=== PATIENT | male | born 1980 | race Caucasian/White ===

== ENCOUNTER 2019-04-06 20:18 | Emergency (ER) | payer OTHER ==
[~2019-04-06] VITALS: Ht 188 cm; Wt 93.0 kg
--- NOTE | 2019-04-06 20:52 | NUR ---
ED Nurse Note: Patient presents with complaints of bilateral ear infections with worsening headache.
[2019-04-06 20:53] VITALS: BP 151/99
[2019-04-06] MEDS ORDERED: Cortisporin OTIC Susp 10ml RIGHT EAR ONE (21:00)
[2019-04-06] MEDS ORDERED: oxyCODONE HCL/Acetaminophen 5/325mg ORAL ONE (21:00)
[2019-04-06] MEDS ORDERED: Ciprofloxacin 500mg tab ORAL ONE (21:00)
--- NOTE | 2019-04-06 21:01 | Emergency Room Report ---
History of Present Illness General Chief Complaint: Earache Source: Patient Present Illness HPI Patient presents with right ear pain. It has been going for several days. He was started on azithromycin and Cortisporin solution. The pain is persisting. He is taken Tylenol and [id number] strength Motrin with some help. He rates the pain 8/10. He feels a headache along with that. There is jaw pain when he opens his mouth. He has a fever. There are no chills. There is no nausea, vomiting or diarrhea. The pain is been intermittent. He feels shooting pains from the ear up to the side of his head. Also has pain when he touches the ear. The pain is keeping him from sleeping. In addition he has ringing in his ears. This is worse on the right-hand side. He has sinus trouble but does not take any medication. He denies any sore throat. There is ingrown hair on the side of his neck on that side. This is minimally tender. Patient is involved in sports and has multiple joint injuries and has had surgeries in the past. He says he has an ACL tear on the right-hand knee and needs to see an channel specialist. There is no calf swelling or pain. Both of his ankles are also sore. He is able to ambulate. There is no numbness and no swelling in the knee at this time. No dysuria or hematuria. No shortness of breath or cough. No chest pain. No abdominal pain. His lack of sleep is making him anxious. Allergies: Coded Allergies: No Known Allergies (Unverified , 04/06/19) Patient History Social History: Denies: smoking Social History Narrative Recent move from the [facility]. Reviewed Nursing Documentation: PMH: Agreed; PSxH: Agreed Nursing Documentation-PM Past Medical History: No Stated History Review of Systems Genitourinary: Reports: no symptoms All Other Systems: negative except mentioned in HPI Physical Exam Vital Signs Date Time Temp Pulse Resp B/P (MAP) Pulse Ox O2 Delivery O2 Flow Rate FiO2 04/06/19 20:24 100.0 86 18 151/99 (116) 98 Room Air Sp02 EP Interpretation: reviewed, normal General Appearance: well appearing, no apparent distress, GCS 15 Head: normocephalic, other - Minimal tenderness right mastoid Eyes: bilateral eye normal inspection, bilateral eye PERRL ENT: normal pharynx, moist mucus membranes, other - Right ear canals swollen with discharge and erythema and pinna tenderness also some mastoid tenderness. There is tenderness when the patient opens his mouth in the TMJ. 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 Differential includes otitis media, otitis externa , mastoiditis amongst others. Due to the appearance of the ear canal antibiotics are indicated not only topically but also because of the fever orally. Also the patient will be given analgesics here. An ear wick is inserted and Cortisporin suspension is instilled. Patient's pain is somewhat improved after treatment. Discussed treatment plan with patient and . Patient stable for outpatient observation and treatment. Last Vital Signs Date Time Temp Pulse Resp B/P (MAP) Pulse Ox O2 Delivery O2 Flow Rate FiO2 04/06/19 21:39 100.0 79 18 151/99 98 Room Air Status: improved Disposition: HOME, SELF-CARE Condition: Improved Scripts Ibuprofen* (MOTRIN*) 600 Mg Tablet 600 MG ORAL Q6H PRN for For Pain, #20 TAB 0 Refills Prov: Adam Stapleton MD 04/06/19 Tramadol Hcl* (ULTRAM*) 50 Mg Tablet 50 MG ORAL Q6H PRN for For Pain, #10 TAB 0 Refills Prov: Adam Stapleton MD 04/06/19 Ciprofloxacin (CIPRO) 500 Mg/5 Ml [facility].mc.rec 500 MG PO BID, #14 TAB Prov: Adam Stapleton MD 04/06/19 Referrals: NOT CHOSEN IPA/,REFERRING (PCP) Adam Stapleton MD Apr 06, 2019 21:01
[2019-04-06] MEDS ORDERED: TRAMADOL HCL50 MG ORAL (21:24)
[2019-04-06] MEDS ORDERED: IBUPROFEN600 MG ORAL (21:24)
[2019-04-06] MEDS ORDERED: CIPRO500 MG/51 PO (21:24)
[2019-04-06 21:39] VITALS: BP 151/99
--- NOTE | 2019-04-06 21:39 | NUR ---
ER DISCHARGE NOTE: Patient is cleared to be discharged per ERMD, pt is aox4, on room air, with stable vital signs. pt was given dc and prescription instructions, pt was able to verbalize understanding, pt id band removed without complications. pt is able to ambulate with steady gait. pt took all belongings.
== END 2019-04-06 21:40 | disposition home or self-care (01) ==
LOC: EMR 20:49
DX: H60.21 Malignant otitis externa, right ear (principal); R51 Headache
CPT/HCPCS: 99282

== ENCOUNTER 2020-06-10 11:14 | Emergency (ER) | payer BC, OTHER ==
[~2020-06-10] VITALS: Ht 188 cm; Wt 88.5 kg
[~2020-06-10 11:14] MED LIST: CIPRO500 MG/51 PO; IBUPROFEN600 MG ORAL; TRAMADOL HCL50 MG ORAL
[2020-06-10 11:28] VITALS: BP 129/75
[2020-06-10] MEDS ORDERED: Morphine Sulfate 4mg/ml Inj (IV USE ONLY) IVP ONE (11:45)
[2020-06-10] MEDS ORDERED: Omnipaque-300 100ml vial INJ PRN (11:45)
[2020-06-10] MEDS ORDERED: Ketorolac 30mg Inj IV ONE (11:45)
[2020-06-10 11:51] LABS: APPEARANCE,URINE CLEAR; BILIRUBIN, URINE NEGATIVE (NEGATIVE); GLUCOSE, URINE (UA) NEGATIVE (NEGATIVE); KETONES,URINE 3+ (NEGATIVE); LEUKOCYTE ESTERASE ,URINE NEGATIVE (NEGATIVE); NITRITE,URINE NEGATIVE (NEGATIVE); PH,URINE 6 (4.5-8.0); PROTEIN,URINE 1+ (NEGATIVE); UROBILINOGEN,URINE NORMAL MG/DL (0.0-1.0)
[2020-06-10 11:57] LABS: BASOPHILS % (AUTO) 0.8 % (0.0-2.0); EOSINOPHILS % (AUTO) 0.3 % (0.0-3.0); HEMATOCRIT 41.7 % (42.0-52.0); HEMOGLOBIN 14.6 G/DL (14.2-18.0); LYMPHOCYTES % (AUTO) 12.3 % (20.0-45.0); MEAN CORPUSCULAR VOLUME 88 FL (80-99); MONOCYTES % (AUTO) 7.8 % (1.0-10.0); NEUTROPHILS % (AUTO) 78.9 % (45.0-75.0); PLATELET COUNT 233 K/UL (150-450); RED BLOOD COUNT 4.73 M/UL (4.70-6.10); RED CELL DISTRIBUTION WIDTH 11.5 % (11.6-14.8); WHITE BLOOD COUNT 10.9 K/UL (4.8-10.8)
[2020-06-10 12:00] LABS: COLOR,URINE YELLOW
[2020-06-10 12:10] LABS: ANION GAP 9 mmol/L (5-15); BLOOD UREA NITROGEN 10 mg/dL (7-18); CALCIUM 9.2 MG/DL (8.5-10.1); CARBON DIOXIDE 28 MMOL/L (21-32); CHLORIDE 101 MMOL/L (98-107); CREATININE 0.9 MG/DL (0.55-1.30); POTASSIUM 4.3 MMOL/L (3.5-5.1); SODIUM 138 MMOL/L (136-145)
[2020-06-10 12:20] LABS: ALANINE AMINOTRANSFERASE 17 U/L (12-78); ALBUMIN 4.4 G/DL (3.4-5.0); ALBUMIN/GLOBULIN RATIO 1.1 (1.0-2.7); ALKALINE PHOSPHATASE 60 U/L (46-116); ASPARTATE AMINO TRANSFERASE 17 U/L (15-37); BILIRUBIN,TOTAL 1.7 MG/DL (0.2-1.0)
[2020-06-10 12:23] LABS: BILIRUBIN,DIRECT 0.2 MG/DL (0.0-0.3)
--- NOTE | 2020-06-10 14:16 | Diagnostic Imaging Report ---
Clinical Indication: Abdominal pain, decreased appetite Technique: No oral contrast utilized, per emergency room physician request IV administration nonionic contrast. Venous phase spiral acquisition obtained through the abdomen and pelvis. Multiplanar reconstructions were generated. Total dose length product 392 mGycm. CTDIvol(s) 7 mGy. Dose reduction achieved using automated exposure control Comparison: none Findings: Lack of enteric contrast limits assessment of the GI tract. There is inflammation within the fat surrounding the distal descending colon, with fluid and/or phlegmon tracking cephalad along Gerota's fascia. The main area of inflammation appears to surround a poorly defined diverticula. No extraluminal gas is demonstrated. No well-defined fluid collection is demonstrated. The appendix is not well-visualized, but no findings to suggest acute appendicitis are evident. No small bowel distention. No free intraperitoneal gas. No loculated fluid collections. The distal esophagus, stomach, duodenum are unremarkable. In the dome of the liver, there is a 2.7 cm hypoattenuating lesion. This demonstrates suggestion of peripheral nodular enhancement. One or more subcentimeter low-attenuation lesions which are too small to characterize are seen in the right hepatic lobe At least 2 punctate calcifications are seen within the right renal collecting system. At least one punctate calcification is seen in the left renal collecting system. No associated hydronephrosis. Subcentimeter low-attenuation lesions are seen within both kidneys, too small to characterize. No retroperitoneal or mesenteric mass or adenopathy. No pelvic mass or adenopathy. The included lung bases are clear. The bones are unremarkable Impression: Inflammation in the fat surrounding the distal descending colon, with fluid and/or phlegmon tracking cephalad. As there appears to be a very poorly visualized diverticulum in this area, findings are most likely due to acute uncomplicated diverticulitis. 2.7 cm hypoattenuating lesion in the dome of the liver. There is suggestion of peripheral nodular enhancement, indicating lesion is likely but not definitively a benign hemangioma. Recommend follow-up CT or MRI with hemangioma protocol to confirm Nonobstructive bilateral intrarenal calculi The CT scanner at [facility] is accredited by the [employer] and the scans are performed using protocols designed to limit radiation exposure to as low as reasonably achievable to attain images of sufficient resolution adequate for diagnostic evaluation.
[2020-06-10] MEDS ORDERED: IBUPROFEN600 M1 ORAL (14:34)
[2020-06-10] MEDS ORDERED: CIPROFLOXACIN500 M2 ORAL (14:34)
[2020-06-10] MEDS ORDERED: METRONIDAZOLE500 MG ORAL (14:34)
[2020-06-10] MEDS ORDERED: metroNIDAZOLE 500mg tab ORAL ONE (14:45)
[2020-06-10] MEDS ORDERED: Ciprofloxacin 500mg tab ORAL ONE (14:45)
[2020-06-10 15:42] VITALS: BP 129/75
--- NOTE | 2020-06-12 17:25 | Emergency Room Report ---
History of Present Illness General Chief Complaint: Abdominal Pain Source: Patient Present Illness HPI 40-year-old male presents with abdominal pain. States he has had pain for the last 3 days. Localized to left lower quadrant, 5 out of 10, dull, nonradiating. Denies fevers or chills. States he has had some diarrhea. Denies nausea or vomiting. No other aggravating relieving factors. Denies any other associated symptoms Allergies: Coded Allergies: No Known Allergies (Unverified , 04/06/19) COVID-19 Screening Contact w/high risk pt: No Experienced COVID-19 symptoms?: No COVID-19 Testing performed CUSTOMER SERVICE COORDINATOR: No Patient History Past Medical History: none Past Surgical History: none Pertinent Family History: none Social History: Denies: smoking, alcohol use, drug use Immunizations: UTD Reviewed Nursing Documentation: PMH: Agreed; PSxH: Agreed Review of Systems All Other Systems: negative except mentioned in HPI Physical Exam Vital Signs Date Time Temp Pulse Resp B/P (MAP) Pulse Ox O2 Delivery O2 Flow Rate FiO2 06/10/20 11:17 98.6 75 16 129/75 (93) 97 Room Air Sp02 EP Interpretation: reviewed, normal General Appearance: no apparent distress, alert, GCS 15, non-toxic Head: normocephalic, atraumatic Eyes: bilateral eye normal inspection, bilateral eye PERRL ENT: hearing grossly normal, normal pharynx, no angioedema, normal voice Neck: full range of motion, supple/symm/no masses Respiratory: chest non-tender, lungs clear, normal breath sounds, speaking full sentences Cardiovascular #1: regular rate, rhythm, no edema Cardiovascular #2: 2+ carotid (R), 2+ carotid (L), 2+ radial (R), 2+ radial (L), 2+ dorsalis pedis (R), 2+ dorsalis pedis (L) Gastrointestinal: normal bowel sounds, soft, non-distended, no guarding, no rebound, tenderness - Left lower quadrant Rectal: deferred Genitourinary: normal inspection, no CVA tenderness Musculoskeletal: back normal, normal range of motion, gait/station normal, non- tender Neurologic: alert, motor strength/tone normal, oriented x3, sensory intact, responsive, speech normal Psychiatric: judgement/insight normal, memory normal, mood/affect normal, no suicidal/homicidal ideation Reflexes: 3+ bicep (R), 3+ bicep (L), 3+ tricep (R), 3+ tricep (L), 3+ knee (R), 3+ knee (L) Skin: no rash Lymphatic: no adenopathy Medical Decision Making Diagnostic Impression: Primary Impression: Diverticulitis ER Course Hospital Course 40-year-old M presents to ED with lower abdominal pain Differential diagnoses include: appendicitis, diverticulitis, SBO, gastroenteritis Clinical course Patient placed on stretcher. color television console monitor. After initial history and physical I ordered labs, IV fluids, UA, pain medication and CT scan Labs - minimal leukocytosis, Hb/Hct stable. electrolytes ok. CT abdomen and pelvis - diverticulitis no signs of abscess I discussed findings with patient. Afebrile, nontoxic-appearing. Will discharge on antibiotics. Safe for discharge close outpatient follow-up. States he has a PMD I feel this is a highly complex case requiring extensive working including EKG/Rhythm strip, Xray/CT/US, Blood/urine lab work, repeat exams while in ED, and administration of strong opiates/narcotics for pain control, admission to hospital or close patient follow up. Diagnosis - divertculitis stable and discharged to home with prescription for Cipro and Flagyl. Followup with PMD. Return to ED if symptoms recur or worsen Labs Test 06/10/20 11:37 White Blood Count 10.9 K/UL (4.8-10.8) Red Blood Count 4.73 M/UL (4.70-6.10) Hemoglobin 14.6 G/DL (14.2-18.0) Hematocrit 41.7 % (42.0-52.0) Mean Corpuscular Volume 88 FL (80-99) Mean Corpuscular Hemoglobin 30.9 PG (27.0-31.0) Mean Corpuscular Hemoglobin Concent 35.1 G/DL (32.0-36.0) Red Cell Distribution Width 11.5 % (11.6-14.8) Platelet Count 233 K/UL (150-450) Mean Platelet Volume 7.3 FL (6.5-10.1) Neutrophils (%) (Auto) 78.9 % (45.0-75.0) Lymphocytes (%) (Auto) 12.3 % (20.0-45.0) Monocytes (%) (Auto) 7.8 % (1.0-10.0) Eosinophils (%) (Auto) 0.3 % (0.0-3.0) Basophils (%) (Auto) 0.8 % (0.0-2.0) Urine Color Yellow Urine Appearance Clear Urine pH 6 (4.5-8.0) Urine Specific [place] 1.015 (1.005-1.035) Urine Protein 1+ (NEGATIVE) Urine Glucose (UA) Negative (NEGATIVE) Urine Ketones 3+ (NEGATIVE) Urine Blood 4+ (NEGATIVE) Urine Nitrite Negative (NEGATIVE) Urine Bilirubin Negative (NEGATIVE) Urine Urobilinogen Normal MG/DL (0.0-1.0) Urine Leukocyte Esterase Negative (NEGATIVE) Urine RBC 5-10 /HPF (0 - 0) Urine WBC 0 /HPF (0 - 0) Urine Squamous Epithelial Cells Occasional /LPF Urine Bacteria Occasional /HPF (NONE) Urine Mucus Moderate /LPF (NONE/OCC) Sodium Level 138 MMOL/L (136-145) Potassium Level 4.3 MMOL/L (3.5-5.1) Chloride Level 101 MMOL/L (98-107) Carbon Dioxide Level 28 MMOL/L (21-32) Anion Gap 9 mmol/L (5-15) Blood Urea Nitrogen 10 mg/dL (7-18) Creatinine 0.9 MG/DL (0.55-1.30) Estimat Glomerular Filtration Rate > 60 mL/min (>60) Glucose Level 95 MG/DL (74-106) Calcium Level 9.2 MG/DL (8.5-10.1) Total Bilirubin 1.7 MG/DL (0.2-1.0) Direct Bilirubin 0.2 MG/DL (0.0-0.3) Aspartate Amino Transf (AST/SGOT) 17 U/L (15-37) Alanine Aminotransferase (ALT/SGPT) 17 U/L (12-78) Alkaline Phosphatase 60 U/L (46-116) Total Protein 8.3 G/DL (6.4-8.2) Albumin 4.4 G/DL (3.4-5.0) Globulin 3.9 g/dL Albumin/Globulin Ratio 1.1 (1.0-2.7) Lipase 83 U/L (73-393) CT/MRI/US Diagnostic Results CT/MRI/US Diagnostic Results : Imaging Test Ordered: CT A/P Impression Procedure: CT Abdomen Pelvis w/Contrast Clinical Indication: Abdominal pain, decreased appetite Technique: No oral contrast utilized, per emergency room physician request IV administration nonionic contrast. Venous phase spiral acquisition obtained through the abdomen and pelvis. Multiplanar reconstructions were generated. Total dose length product 392 mGycm. CTDIvol(s) 7 mGy. Dose reduction achieved using automated exposure control Comparison: none Findings: Lack of enteric contrast limits assessment of the GI tract. There is inflammation within the fat surrounding the distal descending colon, with fluid and/or phlegmon tracking cephalad along Gerota's fascia. The main area of inflammation appears to surround a poorly defined diverticula. No extraluminal gas is demonstrated. No well-defined fluid collection is demonstrated. The appendix is not well-visualized, but no findings to suggest acute appendicitis are evident. No small bowel distention. No free intraperitoneal gas. No loculated fluid collections. The distal esophagus, stomach, duodenum are unremarkable. In the dome of the liver, there is a 2.7 cm hypoattenuating lesion. This demonstrates suggestion of peripheral nodular enhancement. One or more subcentimeter low-attenuation lesions which are too small to characterize are seen in the right hepatic lobe At least 2 punctate calcifications are seen within the right renal collecting system. At least one punctate calcification is seen in the left renal collecting system. No associated hydronephrosis. Subcentimeter low-attenuation lesions are seen within both kidneys, too small to characterize. No retroperitoneal or mesenteric mass or adenopathy. No pelvic mass or adenopathy. The included lung bases are clear. The bones are unremarkable Impression: Inflammation in the fat surrounding the distal descending colon, with fluid and/or phlegmon tracking cephalad. As there appears to be a very poorly visualized diverticulum in this area, findings are most likely due to acute uncomplicated diverticulitis. 2.7 cm hypoattenuating lesion in the dome of the liver. There is suggestion of peripheral nodular enhancement, indicating lesion is likely but not definitively a benign hemangioma. Recommend follow-up CT or MRI with hemangioma protocol to confirm Nonobstructive bilateral intrarenal calculi Last Vital Signs Date Time Temp Pulse Resp B/P (MAP) Pulse Ox O2 Delivery O2 Flow Rate FiO2 06/10/20 15:42 98.6 75 16 129/75 97 Room Air Status: improved Disposition: HOME, SELF-CARE Condition: Stable Scripts Ibuprofen* (MOTRIN*) 600 Mg Tablet 600 MG ORAL Q8H PRN for FOR PAIN, #30 TAB 0 Refills Prov: Lui Fitzpatrick MD 06/10/20 Metronidazole* (FLAGYL*) 500 Mg Tablet 500 MG ORAL TID, #21 TAB Prov: Lui Fitzpatrick MD 06/10/20 Ciprofloxacin Hcl* (CIPROFLOXACIN HCL*) 500 Mg Tablet 500 MG ORAL Q12H, #14 TAB 0 Refills Prov: Lui Fitzpatrick MD 06/10/20 Patient Instructions: Diverticulitis, [id number] Lui Fitzpatrick MD Jun 12, 2020 17:25
== END 2020-06-10 15:44 | disposition home or self-care (01) ==
LOC: EMR 11:45
DX: K57.92 Diverticulitis of intestine, part unspecified, without perforation or abscess without bleeding (principal); D72.829 Elevated white blood cell count, unspecified; N20.0 Calculus of kidney; K76.9 Liver disease, unspecified
CPT/HCPCS: 36415; 74177; 80053; 81003; 82248; 83690; 85025; 96361; 96374; 96375; 99284; J1885; J2270; J7030; Q9965